=== PATIENT | male | born 1975 | race Two or more races ===

== ENCOUNTER 2017-05-21 10:27 | Emergency (ER) | payer OTHER ==
[~2017-05-21] VITALS: Ht 177.8 cm; Wt 86.2 kg
[~2017-05-21 10:27] MED LIST: GABA-534 PO; OXYC-164 PO; ZOLP5TAB2 PO
[2017-05-21] MEDS ORDERED: METOCLOPRAMIDE HCL 10 MG/2 ML VIAL ONE (10:55)
[2017-05-21] MEDS ORDERED: KETOROLAC TROMETHAMINE INJ 30 MG/ML VIAL ONE (10:55)
[2017-05-21] MEDS ORDERED: DEXAMETHASONE SOD PHOSPHATE 10 MG/ML VIAL ONE (10:55)
[2017-05-21] MEDS ORDERED: DEXAMETHASONE SOD PHOSPHATE 10 MG/ML VIAL IV ONE (11:00)
[2017-05-21] MEDS ORDERED: KETOROLAC TROMETHAMINE INJ 30 MG/ML VIAL IV ONE (11:00)
[2017-05-21] MEDS ORDERED: METOCLOPRAMIDE HCL 10 MG/2 ML VIAL IV ONE (11:00)
--- NOTE | 2017-05-21 11:00 | NUR ---
ASSUME PT CARE. HERE FOR HEADACHES X 2 DAYS. ON MONITOR W/ STABLE VITALS. SEEN BY ED PROVIDED. W/ ORDERS. WILL CARRY OUT.
--- NOTE | 2017-05-21 11:41 | NUR ---
PT IS SLEEPING. APPEARS COMFORTABLE AT THIS TIME.
--- NOTE | 2017-05-21 12:30 | NUR ---
PT STATES, HEADACHE IS STILL LINGERING. REQUESTING HEAD CT SCAN.
--- NOTE | 2017-05-21 12:53 | NUR ---
PT TO RADIOLOGY FOR HEAD CT SCAN [facility]IA [facility].
[2017-05-21 13:59] VITALS: BP 121/81
--- NOTE | 2017-05-21 13:59 | NUR ---
Patient discharged to home in stable condition. Written and verbal after care instructions given. Patient verbalizes understanding of instruction.IV removed. Catheter intact and site benign. Pressure and 4x4 applied to site. No bleeding noted.
== END 2017-05-21 14:06 | disposition home or self-care (01) ==
LOC: ER 10:33
DX: G43.909 Migraine, unspecified, not intractable, without status migrainosus (principal); F32.9 Major depressive disorder, single episode, unspecified; G56.00 Carpal tunnel syndrome, unspecified upper limb; R51 Headache; F41.9 Anxiety disorder, unspecified; F17.200 Nicotine dependence, unspecified, uncomplicated
CPT/HCPCS: 70450-TC; A4606; J1100; J1885; J2765; Z7610

== ENCOUNTER 2019-03-27 19:15 | Emergency (ER) | payer OTHER ==
[~2019-03-27] VITALS: Ht 177.8 cm; Wt 80.7 kg
[~2019-03-27 19:15] MED LIST changes: -OXYC-164 PO; +OXYC-454 PO
--- NOTE | 2019-03-27 22:06 | NUR ---
LT LEG POSTERIOR SHORT LEG SPLINT APPLIED. Crutches dispensed. Pt instructed on proper use of crutches. Patient able to demonstrate correct use of crutches.
--- NOTE | 2019-03-27 22:06 | NUR ---
Chase wood in EDM - 03/27/19 at 2212 by [email or web address] RT LEG POSTERIOR SHORT LEG SPLINT APPLIED. Crutches dispensed. Pt instructed on proper use of crutches. Patient able to demonstrate correct use of crutches.
[2019-03-27 22:07] VITALS: BP 128/64
--- NOTE | 2019-03-27 22:27 | NUR ---
Patient discharged to home in stable condition. Written and verbal after care instructions given and instructed not to drive while on pain medications. Patient verbalizes understanding of instruction.
== END 2019-03-27 22:28 | disposition home or self-care (01) ==
LOC: ER 19:20
DX: S82.52XA Displaced fracture of medial malleolus of left tibia, initial encounter for closed fracture (principal); S93.491A Sprain of other ligament of right ankle, initial encounter; G43.909 Migraine, unspecified, not intractable, without status migrainosus; J45.909 Unspecified asthma, uncomplicated; F41.9 Anxiety disorder, unspecified; F32.9 Major depressive disorder, single episode, unspecified; F17.200 Nicotine dependence, unspecified, uncomplicated; Z98.890 Other specified postprocedural states; Z79.899 Other long term (current) drug therapy; X50.1XXA Overexertion from prolonged static or awkward postures, initial encounter; Y93.89 Activity, other specified; Y92.89 Other specified places as the place of occurrence of the external cause; Y99.8 Other external cause status
CPT/HCPCS: 73610-TC; 73630-TC

== ENCOUNTER 2019-08-29 15:27 | Emergency (ER) | payer OTHER ==
[~2019-08-29] VITALS: Ht 177.8 cm; Wt 80.7 kg
--- NOTE | 2019-08-29 15:37 | NUR ---
PT CAME INTO THE EMERGENCY ROOM C/O KNEE AND ABDOMINAL PAIN 06/27. PT AAOX4, VSS, BREATHING EVEN AND UNLABOERD ON ROOM AIR W/ NO ACUTE DISTRESS NOTED. PT CONNECTED TO THE MONITOR.
[2019-08-29] MEDS ORDERED: KETOROLAC TROMETHAMINE INJ 30 MG/ML VIAL ONE (15:48)
[2019-08-29] MEDS ORDERED: PANTOPRAZOLE 40 MG VIAL ONE (15:48)
[2019-08-29 15:58] LABS: BASOPHILS # (AUTO) 0.1 /CMM (0.0-0.2); BASOPHILS % (AUTO) 0.6 % (0.0-2.0); EOSINOPHILS % (AUTO) 2.4 % (0.0-6.0); HEMATOCRIT 48 % (39-51); HEMOGLOBIN 15.9 g/dL (13.5-17.5); LYMPHOCYTES # (AUTO) 2.2 /CMM (0.8-4.8); LYMPHOCYTES % (AUTO) 25.1 % (20.0-44.0); MEAN CORPUSCULAR HGB CONC 34 g/dl (31.0-36.0); MEAN CORPUSCULAR VOLUME 89 fL (80-96); MONOCYTES # (AUTO) 0.7 /CMM (0.1-1.30); NEUTROPHILS # (AUTO) 5.6 /CMM (1.8-8.9); NEUTROPHILS % (AUTO) 63.9 % (43.0-81.0); PLATELET COUNT (AUTO) 180 /CMM (150-450); RED BLOOD CELL COUNT(AUTO) 5.35 MIL/uL (4.5-6.0); WHITE BLOOD COUNT (AUTO) 8.8 K/uL (4.3-11.0)
[2019-08-29 16:00] LABS: APPEARANCE,URINE Clear (CLEAR); BILIRUBIN,URINE Negative (NEGATIVE); BLOOD, URINE Negative Ery/uL (NEGATIVE); COLOR,URINE Yellow (YELLOW); KETONES,URINE Negative (NEGATIVE); LEUKOCYTE ESTERASE ,URINE Negative (NEGATIVE); NITRITE, URINE Negative (NEGATIVE); PH,URINE 5.5 (5.0-8.0); PROTEIN,URINE Negative (NEGATIVE); UGLUCOSE Negative (NEGATIVE); UROBILINOGEN,URINE 0.2 EU/dL (0.2)
[2019-08-29] MEDS ORDERED: PANTOPRAZOLE 40 MG VIAL IV ONE (16:00)
[2019-08-29] MEDS ORDERED: KETOROLAC TROMETHAMINE INJ 30 MG/ML VIAL IV ONE (16:00)
[2019-08-29 16:15] LABS: ALBUMIN 3.7 g/dL (3.4-5.0); BILIRUBIN,DIRECT 0.1 mg/dL (0.0-0.2); BILIRUBIN,TOTAL 0.3 mg/dL (0.2-1.0); CALCIUM, SERUM 9.6 mg/dL (8.5-10.1); CREATININE 0.9 mg/dL (0.6-1.3); TOTAL PROTEIN, SERUM 7.5 g/dL (6.4-8.2)
--- NOTE | 2019-08-29 18:00 | NUR ---
Patient discharged to home in stable condition. Written and verbal after care instructions given. Patient verbalizes understanding of instruction.Patient discharged to home in stable condition. Written and verbal after care instructions given. Patient verbalizes understanding of instruction.
[2019-08-29 18:23] VITALS: BP 147/85
== END 2019-08-29 18:23 | disposition home or self-care (01) ==
LOC: ER 15:30
DX: R10.13 Epigastric pain (principal); M70.42 Prepatellar bursitis, left knee; G43.909 Migraine, unspecified, not intractable, without status migrainosus; J45.909 Unspecified asthma, uncomplicated; F41.9 Anxiety disorder, unspecified; F32.9 Major depressive disorder, single episode, unspecified; F17.200 Nicotine dependence, unspecified, uncomplicated; Z98.890 Other specified postprocedural states; Z79.899 Other long term (current) drug therapy; Y93.89 Activity, other specified
CPT/HCPCS: 36415; 73564; 76705; 80048; 80076; 81001; 83690; 85025; 85652; 96374; 96375; 99284; C9113; J1885; 81000-TC

== ENCOUNTER 2019-12-03 21:56 | Emergency (ER) | payer OTHER ==
[~2019-12-03] VITALS: Ht 177.8 cm; Wt 80.7 kg
[2019-12-03] MEDS ORDERED: IBUPROFEN 600 MG TABLET PO ONE ×2 (22:49→23:00)
--- NOTE | 2019-12-03 22:56 | NUR ---
KITA FROMO HOME TO ER BED 1. AAOX4. NO RESP DISTRESS NOTED. AMBULATORY. C/O R SHOULDER PAIN SINCE WEDNESDAY. PT REPORTS PAIN 9/10 SHARP THROBBING. PT REPORTS THAT HIS SON PULLED HIS ARM THEN PAIN STARTED. R SHOULDER ROM INTACT. MD AT BEDSIDE. XRAY DONE AT BEDSIDE
[2019-12-03] MEDS ORDERED: HYDROCODONE/APAP 10/325MG 1 EA TABLET PO ONE (23:30)
--- NOTE | 2019-12-03 23:50 | NUR ---
Patient discharged to home in stable condition. Written and verbal after care instructions given. Patient verbalizes understanding of instruction. Pt ambulatory with a steady gait
[2019-12-03 23:54] VITALS: BP 124/85
== END 2019-12-03 23:54 | disposition home or self-care (01) ==
LOC: ER 21:59
DX: M25.511 Pain in right shoulder (principal); G43.909 Migraine, unspecified, not intractable, without status migrainosus; J45.909 Unspecified asthma, uncomplicated; F41.9 Anxiety disorder, unspecified; F32.9 Major depressive disorder, single episode, unspecified; F17.200 Nicotine dependence, unspecified, uncomplicated; Z98.890 Other specified postprocedural states; Z79.899 Other long term (current) drug therapy
CPT/HCPCS: 73030-TC

== ENCOUNTER 2021-03-03 04:13 | Emergency (ER) | payer OTHER ==
[~2021-03-03] VITALS: Ht 177.8 cm; Wt 83.9 kg
[~2021-03-03 04:13] MED LIST changes: -OXYC-454 PO; +OXYC1TAB12 PO
[2021-03-03] MEDS ORDERED: ALBUTEROL FS 2.5 MG/3 ML VIAL.NEB NEB STA (04:16)
[2021-03-03] MEDS ORDERED: IPRATROPIUM NEB FS 0.5 MG/2.5 ML AMPUL.NEB NEB STA (04:16)
--- NOTE | 2021-03-03 04:20 | NUR ---
PATIENT BIBSELF C/O SOB SINCE MIDNIGHT, STATES HX OF ASTHMA. PATIENT IS A/OX4, O2 STAT ON ROOM AIR 97%. VSS. WILL CONTINUE TO MONITOR.
[2021-03-03] MEDS ORDERED: predniSONE 10 MG TABLET ONE (04:22)
[2021-03-03] MEDS ORDERED: IPRATROPIUM NEB FS 0.5 MG/2.5 ML AMPUL.NEB ONE (04:23)
[2021-03-03] MEDS ORDERED: ALBUTEROL FS 2.5 MG/3 ML VIAL.NEB ONE (04:23)
--- NOTE | 2021-03-03 04:28 | NUR ---
RT AT BEDSIDE, PT RECEIVING BREATHING Tx.
[2021-03-03] MEDS ORDERED: predniSONE 20 MG TABLET PO ONE (04:30)
[2021-03-03] MEDS ORDERED: PRED20TA PO (05:24)
--- NOTE | 2021-03-03 05:47 | NUR ---
Patient discharged to home in stable condition. Written and verbal after care instructions given. Patient verbalizes understanding of instruction. ambulatory with a steady gait
[2021-03-03 05:49] VITALS: BP 140/78
== END 2021-03-03 05:50 | disposition home or self-care (01) ==
LOC: ER 04:15
DX: J45.909 Unspecified asthma, uncomplicated (principal); G43.909 Migraine, unspecified, not intractable, without status migrainosus; F41.9 Anxiety disorder, unspecified; F32.9 Major depressive disorder, single episode, unspecified; F17.200 Nicotine dependence, unspecified, uncomplicated; Z98.890 Other specified postprocedural states; Z79.899 Other long term (current) drug therapy
CPT/HCPCS: 94644; 99285; J7512

== ENCOUNTER 2021-09-13 21:53 | Emergency (ER) | payer OTHER ==
[~2021-09-13] VITALS: Ht 177.8 cm; Wt 89.4 kg
[~2021-09-13 21:53] MED LIST changes: +PRED20TA PO
--- NOTE | 2021-09-13 22:16 | NUR ---
PATIENT BIBSELF C/O RIGHT KNEE PAIN S/P "FELT KNEE TWISTED" X 2 DAYS AGO. PT TOOK TRAMADOL 50MG @6PM. +800MG MOTRIN THIS MORNING. PATIENT IS A/O X 4, RR EVEN AND UNLABORED, NO SOB NOTED. 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
[2021-09-13] MEDS ORDERED: predniSONE 50 MG TABLET PO ONE ×2 (22:30→23:00)
[2021-09-13] MEDS ORDERED: KETOROLAC TROMETHAMINE INJ 60 MG/2 ML VIAL IM ONE ×2 (22:30→22:32)
[2021-09-13] MEDS ORDERED: predniSONE 20 MG TABLET ONE (22:32)
[2021-09-13] MEDS ORDERED: PRED50TA PO (23:11)
[2021-09-13 23:16] VITALS: BP 131/74
--- NOTE | 2021-09-13 23:16 | NUR ---
Patient discharged to home in stable condition. Rx and Written and verbal after care instructions given. Patient verbalizes understanding of instruction.
== END 2021-09-13 23:17 | disposition home or self-care (01) ==
LOC: ER 21:54
DX: S83.8X1A Sprain of other specified parts of right knee, initial encounter (principal); G43.909 Migraine, unspecified, not intractable, without status migrainosus; J45.909 Unspecified asthma, uncomplicated; F41.9 Anxiety disorder, unspecified; F32.9 Major depressive disorder, single episode, unspecified; F17.200 Nicotine dependence, unspecified, uncomplicated; Z98.890 Other specified postprocedural states; Z79.899 Other long term (current) drug therapy; X50.1XXA Overexertion from prolonged static or awkward postures, initial encounter; Y93.01 Activity, walking, marching and hiking; Y92.89 Other specified places as the place of occurrence of the external cause; Y99.8 Other external cause status
CPT/HCPCS: 73564; 96372; 99283; J1885; J7512

== ENCOUNTER 2022-02-05 13:10 | Emergency (ER) | payer OTHER ==
[~2022-02-05] VITALS: Ht 177.8 cm; Wt 83.9 kg
[~2022-02-05 13:10] MED LIST changes: +PRED50TA PO
--- NOTE | 2022-02-05 14:00 | NUR ---
BIBS for c/o "Lower Abdominal cramping 07/27, Red Blood in stool. Feel tired/fatiqued". Abdomen soft and non-distended. In room air and denies SOB. Respiration regular and unlabored. Attached to the monitor. Warm blanket provided for comfort. Will continue to monitor the patient.
[2022-02-05] MEDS ORDERED: ONDANSETRON HCL/PF 4 MG/2 ML VIAL ONE (14:29)
[2022-02-05] MEDS ORDERED: IV NS 0.9% 1,000 ML BAG IV ONE (14:30)
[2022-02-05] MEDS ORDERED: ONDANSETRON HCL/PF 4 MG/2 ML VIAL IVP ONE ×2 (14:30→15:00)
--- NOTE | 2022-02-05 14:37 | NUR ---
IV LINE IS ESTABLISHED, BLOOD SPECIMEN COLLECTED AND SENT TO THE LAB. THE LINE IS SALINE LOCKED.
[2022-02-05] MEDS ORDERED: PANTOPRAZOLE 40 MG VIAL ONE (14:41)
[2022-02-05 14:47] LABS: BASOPHILS # (AUTO) 0.1 K/uL (0.0-0.2); BASOPHILS % (AUTO) 0.6 % (0.0-2.0); HEMATOCRIT 49 % (39-51); HEMOGLOBIN 16.4 g/dL (13.5-17.5); LYMPHOCYTES # (AUTO) 2.8 K/uL (0.8-4.8); LYMPHOCYTES % (AUTO) 24.1 % (20.0-44.0); MEAN CORPUSCULAR HGB CONC 34 g/dl (31.0-36.0); MEAN CORPUSCULAR VOLUME 88 fL (80-96); MONOCYTES # (AUTO) 0.7 K/uL (0.1-1.30); MONOCYTES % (AUTO) 5.5 % (2.0-12.0); NEUTROPHILS # (AUTO) 7.9 K/uL (1.8-8.9); NEUTROPHILS % (AUTO) 66.8 % (43.0-81.0); PLATELET COUNT (AUTO) 213 K/uL (150-450); RED BLOOD CELL COUNT(AUTO) 5.54 MIL/uL (4.5-6.0); WHITE BLOOD COUNT (AUTO) 11.8 K/uL (4.3-11.0)
[2022-02-05 14:55] LABS: BILIRUBIN,DIRECT 0.1 mg/dL (0.0-0.2); BILIRUBIN,TOTAL 0.5 mg/dL (0.2-1.0); CALCIUM, SERUM 9.2 mg/dL (8.5-10.1); POTASSIUM 4.1 mmol/L (3.5-5.1); TOTAL PROTEIN, SERUM 7.8 g/dL (6.4-8.2)
[2022-02-05] MEDS ORDERED: PANTOPRAZOLE 40 MG VIAL IV ONE (15:00)
[2022-02-05] MEDS ORDERED: CIPR-262 PO (15:51)
[2022-02-05] MEDS ORDERED: ONDA4TAB5 PO (15:51)
[2022-02-05] MEDS ORDERED: PANT40TA2 PO (15:51)
--- NOTE | 2022-02-05 16:02 | NUR ---
IV removed. Catheter intact and site benign. Pressure and 4x4 applied to site. No bleeding noted.Patient discharged to home in stable condition. Written and verbal after care instructions given. Patient verbalizes understanding of instruction.
[2022-02-05 16:03] VITALS: BP 130/72
== END 2022-02-05 16:03 | disposition home or self-care (01) ==
LOC: ER 13:25
DX: K62.5 Hemorrhage of anus and rectum (principal); K52.9 Noninfective gastroenteritis and colitis, unspecified; G43.909 Migraine, unspecified, not intractable, without status migrainosus; J45.909 Unspecified asthma, uncomplicated; F41.9 Anxiety disorder, unspecified; F32.A Depression, unspecified; Z87.39 Personal history of other diseases of the musculoskeletal system and connective tissue; F17.200 Nicotine dependence, unspecified, uncomplicated; Z79.52 Long term (current) use of systemic steroids; Z79.899 Other long term (current) drug therapy
CPT/HCPCS: 36415; 74176; 80048; 80076; 83690; 85025; 85730; 93005; 96361; 96374; 96375; 99285; C9113; J2405; J7030

== ENCOUNTER 2022-02-16 02:51 | Emergency (ER) | payer OTHER ==
[~2022-02-16] VITALS: Ht 177.8 cm; Wt 82.6 kg
[~2022-02-16 02:51] MED LIST changes: +CIPR-262 PO; +ONDA4TAB5 PO; +PANT40TA2 PO
[2022-02-16] MEDS ORDERED: ONDANSETRON HCL/PF 4 MG/2 ML VIAL IVP ONE ×2 (03:30→05:00)
[2022-02-16] MEDS ORDERED: ONDANSETRON HCL/PF 4 MG/2 ML VIAL ONE ×2 (03:33→05:11)
[2022-02-16 03:53] LABS: BASOPHILS # (AUTO) 0.1 K/uL (0.0-0.2); BASOPHILS % (AUTO) 0.8 % (0.0-2.0); EOSINOPHILS % (AUTO) 7.3 % (0.0-6.0); HEMATOCRIT 45 % (39-51); HEMOGLOBIN 15.2 g/dL (13.5-17.5); LYMPHOCYTES % (AUTO) 28.2 % (20.0-44.0); MEAN CORPUSCULAR HGB CONC 34 g/dl (31.0-36.0); MEAN CORPUSCULAR VOLUME 87 fL (80-96); MONOCYTES # (AUTO) 0.9 K/uL (0.1-1.30); MONOCYTES % (AUTO) 12.2 % (2.0-12.0); NEUTROPHILS # (AUTO) 3.7 K/uL (1.8-8.9); NEUTROPHILS % (AUTO) 51.5 % (43.0-81.0); PLATELET COUNT (AUTO) 186 K/uL (150-450); RED BLOOD CELL COUNT(AUTO) 5.16 MIL/uL (4.5-6.0); WHITE BLOOD COUNT (AUTO) 7.3 K/uL (4.3-11.0)
[2022-02-16 04:40] LABS: CALCIUM, SERUM 8.7 mg/dL (8.5-10.1); CARBON DIOXIDE 26 mmol/L (21-32); CHLORIDE 106 mmol/L (98-107); CREATININE 0.9 mg/dL (0.6-1.3); GLUCOSE 106 mg/dL (74-106); POTASSIUM 4.2 mmol/L (3.5-5.1); SODIUM SERUM 139 mmol/L (136-145); UREA NITROGEN, BLOOD 23 mg/dL (7-18)
[2022-02-16] MEDS ORDERED: PANTOPRAZOLE 40 MG VIAL IV ONE (05:00)
[2022-02-16] MEDS ORDERED: IV NS 0.9% 500 ML IV ONE (05:00)
[2022-02-16] MEDS ORDERED: MAG HYDROX/AL HYDROX/SIMETH 30 ML UDC PO ONE (05:00)
[2022-02-16] MEDS ORDERED: MAG HYDROX/AL HYDROX/SIMETH 30 ML UDC ONE (05:10)
[2022-02-16] MEDS ORDERED: PANTOPRAZOLE 40 MG VIAL ONE (05:10)
[2022-02-16 08:34] VITALS: BP 112/63
== END 2022-02-16 09:25 | disposition short-term general hospital (02) ==
LOC: ER 02:53
DX: K92.0 Hematemesis (principal); R10.13 Epigastric pain; Z87.11 Personal history of peptic ulcer disease; Z20.822 Contact with and (suspected) exposure to COVID-19; N28.9 Disorder of kidney and ureter, unspecified; Z82.49 Family history of ischemic heart disease and other diseases of the circulatory system; F17.210 Nicotine dependence, cigarettes, uncomplicated; J45.909 Unspecified asthma, uncomplicated; F41.9 Anxiety disorder, unspecified; Z79.899 Other long term (current) drug therapy
CPT/HCPCS: 36415; 71045; 80048; 84484 ×2; 85025; 87426; 93005; 96374; 96375; 96376; 99285; C9113; C9803; J2405 ×2; J7040

== ENCOUNTER 2022-07-09 12:39 | Emergency (ER) | payer OTHER ==
[~2022-07-09] VITALS: Ht 177.8 cm; Wt 81.6 kg
--- NOTE | 2022-07-09 13:00 | NUR ---
iv line started. blood drawn and sent to lab.
--- NOTE | 2022-07-09 13:26 | NUR ---
dr godwin at bedside for eval.
[2022-07-09 13:37] LABS: BASOPHILS % (AUTO) 0.6 % (0.0-2.0); HEMATOCRIT 46 % (39-51); HEMOGLOBIN 15.5 g/dL (13.5-17.5); LYMPHOCYTES # (AUTO) 2.1 K/uL (0.8-4.8); LYMPHOCYTES % (AUTO) 29.3 % (20.0-44.0); MEAN CORPUSCULAR HGB CONC 34 g/dl (31.0-36.0); MEAN CORPUSCULAR VOLUME 88 fL (80-96); MONOCYTES # (AUTO) 0.6 K/uL (0.1-1.30); MONOCYTES % (AUTO) 7.8 % (2.0-12.0); NEUTROPHILS # (AUTO) 4.2 K/uL (1.8-8.9); NEUTROPHILS % (AUTO) 59.3 % (43.0-81.0); PLATELET COUNT (AUTO) 198 K/uL (150-450); RED BLOOD CELL COUNT(AUTO) 5.21 MIL/uL (4.5-6.0); WHITE BLOOD COUNT (AUTO) 7.2 K/uL (4.3-11.0)
--- NOTE | 2022-07-09 13:40 | NUR ---
pt ot radiology for abdominal ct scan via [facility].
[2022-07-09 13:51] LABS: ALBUMIN 3.6 g/dL (3.4-5.0); BILIRUBIN,DIRECT 0.1 mg/dL (0.0-0.2); BILIRUBIN,TOTAL 0.7 mg/dL (0.2-1.0); CALCIUM, SERUM 8.9 mg/dL (8.5-10.1); POTASSIUM 4.4 mmol/L (3.5-5.1); TOTAL PROTEIN, SERUM 7.1 g/dL (6.4-8.2)
[2022-07-09 13:56] LABS: BILIRUBIN,URINE NEGATIVE (NEGATIVE); COLOR,URINE YELLOW (YELLOW); LEUKOCYTE ESTERASE ,URINE NEGATIVE (NEGATIVE); NITRITE, URINE NEGATIVE (NEGATIVE); PH,URINE 5.5 (5.0-8.0); PROTEIN,URINE NEGATIVE (NEGATIVE); UGLUCOSE NEGATIVE (NEGATIVE); UROBILINOGEN,URINE 0.2 EU/dL (0.2)
[2022-07-09] MEDS ORDERED: OMEP20TA5 PO (14:54)
[2022-07-09 15:03] VITALS: BP 125/76
== END 2022-07-09 15:04 | disposition home or self-care (01) ==
LOC: ER 12:42
DX: R10.84 Generalized abdominal pain (principal); G43.909 Migraine, unspecified, not intractable, without status migrainosus; J45.909 Unspecified asthma, uncomplicated; F41.9 Anxiety disorder, unspecified; F32.A Depression, unspecified; F17.200 Nicotine dependence, unspecified, uncomplicated; Z79.899 Other long term (current) drug therapy
CPT/HCPCS: 36415; 80048-TC; 80076-TC; 83690-TC; 85025-TC

== ENCOUNTER 2022-07-13 13:39 | Emergency (ER) | payer OTHER ==
[~2022-07-13] VITALS: Ht 177.8 cm; Wt 82.1 kg
[~2022-07-13 13:39] MED LIST changes: +OMEP20TA5 PO
--- NOTE | 2022-07-13 13:50 | NUR ---
BIBS C/O BLOOD NOTED IN HIS STOOL SINCE HE WAS SEEN HERE 4 DAYS AGO FOR ABDOMINAL PAIN. AMBULATORY, PLACED ON BED, AAOX4, BREATHING EVEN AND UNLABORED SATURATING AT 98%RA
--- NOTE | 2022-07-13 14:30 | NUR ---
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
[2022-07-13 15:06] LABS: BASOPHILS % (AUTO) 0.5 % (0.0-2.0); EOSINOPHILS % (AUTO) 3.2 % (0.0-6.0); HEMATOCRIT 48 % (39-51); LYMPHOCYTES # (AUTO) 2.3 K/uL (0.8-4.8); LYMPHOCYTES % (AUTO) 32.7 % (20.0-44.0); MEAN CORPUSCULAR HGB CONC 33 g/dl (31.0-36.0); MEAN CORPUSCULAR VOLUME 89 fL (80-96); MONOCYTES # (AUTO) 0.6 K/uL (0.1-1.30); MONOCYTES % (AUTO) 9.1 % (2.0-12.0); NEUTROPHILS # (AUTO) 3.8 K/uL (1.8-8.9); NEUTROPHILS % (AUTO) 54.5 % (43.0-81.0); PLATELET COUNT (AUTO) 195 K/uL (150-450); RED BLOOD CELL COUNT(AUTO) 5.42 MIL/uL (4.5-6.0)
[2022-07-13 16:14] LABS: ALBUMIN 3.5 g/dL (3.4-5.0); BILIRUBIN,DIRECT 0.1 mg/dL (0.0-0.2); BILIRUBIN,TOTAL 0.4 mg/dL (0.2-1.0); CALCIUM, SERUM 9.2 mg/dL (8.5-10.1); CREATININE 0.9 mg/dL (0.6-1.3); POTASSIUM 4.2 mmol/L (3.5-5.1); TOTAL PROTEIN, SERUM 7.7 g/dL (6.4-8.2)
--- NOTE | 2022-07-13 16:53 | NUR ---
Patient discharged to home in stable condition. Written and verbal after care instructions given. Patient verbalizes understanding of instruction.
[2022-07-13 16:59] VITALS: BP 130/70
== END 2022-07-13 16:53 | disposition home or self-care (01) ==
LOC: ER 13:41
DX: K62.5 Hemorrhage of anus and rectum (principal); G43.909 Migraine, unspecified, not intractable, without status migrainosus; F41.9 Anxiety disorder, unspecified; F32.A Depression, unspecified; F17.200 Nicotine dependence, unspecified, uncomplicated; Z79.899 Other long term (current) drug therapy
CPT/HCPCS: 36415; 80048-TC; 80076-TC; 83690-TC; 85025-TC; 86850-TC

== ENCOUNTER 2023-11-27 22:00 | Emergency (ER) | payer OTHER ==
[~2023-11-27] VITALS: Ht 177.8 cm; Wt 81.6 kg
[2023-11-28] MEDS ORDERED: ACET-2605 PO (00:21)
[2023-11-28] MEDS ORDERED: ONDA4TAB11 PO (00:21)
[2023-11-28 00:44] VITALS: BP 146/89; TEMP 208.9; O2SAT 99
== END 2023-11-28 00:45 | disposition home or self-care (01) ==
LOC: ER 22:06
DX: S06.0X0A Concussion without loss of consciousness, initial encounter (principal); G43.909 Migraine, unspecified, not intractable, without status migrainosus; J45.909 Unspecified asthma, uncomplicated; F41.9 Anxiety disorder, unspecified; F32.A Depression, unspecified; I10 Essential (primary) hypertension; F17.200 Nicotine dependence, unspecified, uncomplicated; Z98.890 Other specified postprocedural states; Z79.899 Other long term (current) drug therapy; V89.2XXA Person injured in unspecified motor-vehicle accident, traffic, initial encounter; Y93.89 Activity, other specified; Y92.89 Other specified places as the place of occurrence of the external cause; Y99.8 Other external cause status
CPT/HCPCS: 70450-TC

== ENCOUNTER 2023-12-10 22:55 | Emergency (ER) | payer OTHER ==
[~2023-12-10] VITALS: Ht 177.8 cm; Wt 84.8 kg
[~2023-12-10 22:55] MED LIST changes: +ACET-2605 PO; +ONDA4TAB11 PO
[2023-12-10 23:10] VITALS: TEMP 98.4
[2023-12-10] MEDS ORDERED: METOCLOPRAMIDE HCL 10 MG/2 ML VIAL ONE (23:25)
[2023-12-10] MEDS ORDERED: SUMATRIPTAN SUCCINATE 6 MG/0.5 ML VIAL SQ ONE (23:25)
[2023-12-10] MEDS: SUMATRIPTAN SUCCINATE 6 MG/0.5 ML VIAL SQ ONE (23:26)
[2023-12-10] MEDS: METOCLOPRAMIDE HCL 10 MG/2 ML VIAL IV ONE (23:26)
[2023-12-10] MEDS: IV NS 0.9% 1,000 ML BAG IV ONE (23:38)
[2023-12-11] MEDS ORDERED: ONDA4TAB5 PO (00:25)
[2023-12-11 04:58] VITALS: BP 134/88; O2SAT 98
== END 2023-12-11 04:59 | disposition home or self-care (01) ==
LOC: ER 23:19
DX: F07.81 Postconcussional syndrome (principal); G43.909 Migraine, unspecified, not intractable, without status migrainosus; J45.909 Unspecified asthma, uncomplicated; F17.200 Nicotine dependence, unspecified, uncomplicated; Z79.899 Other long term (current) drug therapy; Z98.890 Other specified postprocedural states
CPT/HCPCS: 99285; 96374; 70450; 96361; 96372; J3030; J2765; J7030

== ENCOUNTER 2025-04-05 19:32 | Emergency (ER) | payer OTHER ==
[~2025-04-05] VITALS: Ht 175.3 cm; Wt 81.6 kg
[2025-04-05] MEDS ORDERED: HYDROCODONE/APAP 5/325MG TABLET ONE (20:02)
[2025-04-05] MEDS: HYDROCODONE/APAP 5/325MG TABLET PO ONE (20:04)
[2025-04-05] MEDS ORDERED: ACET-2030 PO (20:25)
[2025-04-05 20:50] VITALS: BP 136/74; TEMP 98.2; O2SAT 99
== END 2025-04-05 20:50 | disposition home or self-care (01) ==
LOC: ER 19:40
DX: S93.492A Sprain of other ligament of left ankle, initial encounter (principal); F17.200 Nicotine dependence, unspecified, uncomplicated; I10 Essential (primary) hypertension; J45.909 Unspecified asthma, uncomplicated; G43.909 Migraine, unspecified, not intractable, without status migrainosus; F41.9 Anxiety disorder, unspecified; F32.A Depression, unspecified; Z91.013 Allergy to seafood; Z79.52 Long term (current) use of systemic steroids; Z79.899 Other long term (current) drug therapy; Z87.11 Personal history of peptic ulcer disease; X50.1XXA Overexertion from prolonged static or awkward postures, initial encounter; Y93.01 Activity, walking, marching and hiking; Y92.89 Other specified places as the place of occurrence of the external cause; Y99.8 Other external cause status
CPT/HCPCS: 73610-TC